=== PATIENT | female | born 1975 | race Caucasian/White ===

== ENCOUNTER → 2020-04-07 | Outpatient (CLI) | payer MEDICARE, OTHER ==
--- NOTE | 2020-04-07 23:07 | MR ---
EXAMINATION TYPE: MR brain/cspine wo/w DATE OF EXAM: 04/07/2020 COMPARISON: Prior MRI brain March 23, 2014. Prior C-spine x-ray December 31, 2013 HISTORY: MS, Darrius weakness, Dizziness, Numbness in darrius extremities TECHNIQUE: Multiplanar, multisequence images of the cervical spine, brain, and brainstem are all performed witho ut and with IV contrast, utilizing 10 mL intravenous Gadavist gadolinium contrast is administered int ravenously. Demyelinating disease protocol with additional Sagittal Flair sequence performed of the brain and brainstem and PD sagittal sequences of cervical spine performed. FINDINGS: T2 Lesions Present : Yes Approximate Number of Lesions: Approximately 15-20 Locations Identified : Scattered Size of Reference Lesion(s): 1. 5 x 4 x 4 mm on axial image 20 and sagittal image 28 posterior right frontal lesion new from prior . 2 5 x 5 x 4 mm on axial image 17 and sagittal image 13 left frontal deep white matter lesion larger a nd more prominent from prior Enhancing Lesion(s) Present: No T1 Hypointense Lesion(s) Present: Yes Change from Prior: Increase in number Diffusion weighted images demonstrate no evidence of a recent infarct or other diffusion abnormality. There is no worrisome extra-axial fluid collection. The ventricular system and cisternal spaces ar e normal in size and appearance. The brain volume is age appropriate. Midline structures demonstrate normal morphology. The craniocervical junction appears within normal limits. Post contrast images demonstrate no abnormal enhancement. The dural venous sinuses appear pa tent. Mild mucosal thickening right maxillary sinus otherwise paranasal sinuses are clear. IMPRESSION: Mild to moderate nonspecific white matter changes presumed on basis of patient's known mu ltiple sclerosis with interval progression since 2013 MRI. No enhancing lesions are evident currently . C-SPINE: FINDINGS: Images suboptimal as there is motion artifact degradation. Sagittal images of the cervical spine show the craniocervical junction to appear within normal limits. The cervical and upper thorac ic spinal cord is normal in caliber. No obvious suspicious T2 hyperintense lesion identified. Verteb ral alignment is anatomic. Mild disc space narrowing C6-C7 level. The vertebral body and intraverteb ral disk heights are otherwise normal. The bone marrow signal intensity is within normal limits. No suspicious postcontrast enhancement. Axial images show the C2-C3 level to appear within normal limits. Axial images at C3-C4 level show focal left paracentral disc protrusion effacing anterolateral thecal sac, patent bilateral neural foramina. Axial images at C4-C5 level show central disc protrusion effacing anterior thecal sac, patent bilater al neural foramina. Axial images at C5-C6 level show broad-based left paracentral disc protrusion effacing ventral thecal sac, patent bilateral neural foramina. Axial images at C6-C7 level showed broad based posterior disc protrusion effacing anterior thecal sac and causing mild to moderate bilateral neural foraminal narrowing. Axial images at C7-T1 level are within normal limits. IMPRESSION: Suboptimal study. No convincing MRI evidence for demyelinating disease involvement in the cervical spinal cord. Multilevel mild degenerative changes as detailed above.
== END | disposition home or self-care (01) ==
LOC: RADMRIMAIN 15:35
PROVIDERS: ATTEND Physician Assistant Medical
DX: R90.82 White matter disease, unspecified (principal); G43.909 Migraine, unspecified, not intractable, without status migrainosus; R25.1 Tremor, unspecified; M54.2 Cervicalgia; M47.892 Other spondylosis, cervical region
CPT/HCPCS: 70553; 72156; A9585

== ENCOUNTER → 2021-02-18 | Outpatient (CLI) | payer MEDICARE, OTHER ==
--- NOTE | 2021-02-19 01:37 | MR ---
EXAMINATION TYPE: MR cspine/tspine/lspine wo con DATE OF EXAM: 02/18/2021 COMPARISON: MR scan cervical spine 04/07/2020 HISTORY: Neck pain, pain into both arms to fingers, mid back pain, low back pain down both legs for 1 5 years. TECHNIQUE: Multiplanar, multisequence imaging of the cervical thoracic and lumbar spine without contr ast. FINDINGS: Cervical vertebra have normal alignment. There is some mild posterior disc bulging from C4 to C7. The re is developmentally large spinal canal and no significant spinal stenosis. Cervical spinal cord has normal signal pattern. There is no edema. Brainstem is intact. There is no sign of cervical paraspin al mass. The thoracic vertebra have fairly normal alignment. There is no thoracic spinal stenosis. Thoracic sp inal cord has fairly normal signal pattern. There is no edema. There is no thoracic compression fract ure. Posterior elements are intact. Facet joints appear intact. I see no focal bone destruction. The lumbar vertebra have fairly normal alignment. There is mild lumbar disc space narrowing and decre ased signal in the disks. There is minimal posterior disc bulging at L4-5. There is no evidence of sp inal stenosis. There is no lumbar compression fracture. There is no lumbar paraspinal mass. Sacroilia c joints are intact. IMPRESSION: Minor degenerative changes in the cervical and lumbar spine. No spinal stenosis. No significant abnor mality of the thoracic spine. Cervical spine not significantly different than old exam. There is slight increase facet arthropathy compared to old MR scan of 11/06/2018 in the lumbar spine a t L3-4 L4-5.
== END | disposition home or self-care (01) ==
LOC: RADMRIMAIN 20:17
PROVIDERS: ATTEND Orthopaedic Surgery
DX: M50.123 Cervical disc disorder at C6-C7 level with radiculopathy (principal); M51.16 Intervertebral disc disorders with radiculopathy, lumbar region
CPT/HCPCS: 72141; 72146; 72148

== ENCOUNTER → 2021-04-06 | Outpatient (CLI) | payer MEDICARE, OTHER ==
--- NOTE | 2021-04-07 04:23 | MR ---
EXAMINATION TYPE: MR clavicle LT wo/w con DATE OF EXAM: 04/06/2021 COMPARISON: None HISTORY: Palpable lump left clavicle. CONTRAST: Standard multiplanar, multisequence MRI departmental protocol utilizing 10 mL intravenous Gadavist ga dolinium contrast. Left clavicle has normal size and contour. There is no evidence of a fracture. There is no sign of lefty ne edema. AC joint is intact. There is mild spurring at the AC joint. There is no significant subacro mial impingement. AC joint space is fairly normal. The sternoclavicular joint is anatomic. There is n o evidence of joint effusion. There is no evidence of a soft tissue mass. There is a single 8 mm supr aclavicular lymph node. Muscle structures around the left clavicle appear intact. Coracoclavicular li gament appears intact. Contrast images show no pathologic enhancement. IMPRESSION: No evidence of a mass involving the left clavicle. There is minimal spurring at the AC joint. No evid ence of a soft tissue mass. No fracture.
== END | disposition home or self-care (01) ==
LOC: RADMRIMAIN 20:44
PROVIDERS: ATTEND Surgery Surgical Oncology
DX: M77.8 Other enthesopathies, not elsewhere classified (principal)
CPT/HCPCS: 71552; A9585

== ENCOUNTER → 2021-04-11 | Outpatient (CLI) | payer MEDICARE, OTHER ==
--- NOTE | 2021-04-12 06:08 | MR ---
EXAMINATION TYPE: MR pelvis wo/w con DATE OF EXAM: 04/11/2021 COMPARISON: None HISTORY: Left buttock lump. CONTRAST: Standard multiplanar, multisequence MRI departmental protocol utilizing mL intravenous gadolinium con trast. The IV contrast was 12 mL gadolinium. FINDINGS: There is rounded 2.3 cm focus of decreased signal in the subcutaneous fat over the posterior left but tock. This is in the area of concern and has low signal on all of the imaging sequences. The lumbar s pine x-ray exam of 01/31/2021 is reviewed and there is rounded calcification projected over the greater trochanter of the left femur that is probably this mass and related to focal fat necrosis. This celine ures 2 cm on the pelvis x-ray exam. Contrast images show no pathologic enhancement. There is no evidence of free fluid in the pelvis. I see no pelvic mass. Bladder distends smoothly. Sa cral spine appears intact. The proximal femurs and hip joints appear intact. There is no sign of avas cular necrosis. The acetabula appear normal. Sacroiliac joints are intact. IMPRESSION: Rounded nonenhancing low signal mass in the subcutaneous tissues consistent with fat necrosis or gran uloma and not changed in size compared to the calcium density evident on the pelvis x-ray of 01/31/2021 .
== END | disposition home or self-care (01) ==
LOC: RADMRIMAIN 07:03
PROVIDERS: ATTEND Surgery Surgical Oncology
DX: R22.42 Localized swelling, mass and lump, left lower limb (principal)
CPT/HCPCS: 72197; A9585

== ENCOUNTER → 2021-05-27 | Outpatient (CLI) | payer MEDICARE, OTHER ==
--- NOTE | 2021-05-27 14:43 | MM ---
Reason for exam: additional evaluation requested from prior study. Last mammogram was performed 5 years and 8 months ago. History: Patient is postmenopausal. Benign MG stereo VAD BX LT of the left breast, July 22, 2014. Took hormonal contraceptives for 14 years beginning at age 15. Took estrogen for 1 year. Physical Findings: Nurse did not find any significant physical abnormalities on exam. MG 3D Diag Mammo W/Cad JACI Bilateral CC and MLO view(s) were taken. XCCL view(s) were taken of the right breast. Prior study comparison: October 01, 2015, bilateral MG 3d screening mammo w/cad. January 29, 2015, left breast MG diagnostic mammo LT w CAD. There are scattered fibroglandular densities. Previous mammotome biopsy in the left breast. There is no discrete abnormality. These results were verbally communicated with the patient and result sheet given to the patient on 05/27/21. ASSESSMENT: Negative, BI-RAD 1 RECOMMENDATION: Routine screening mammogram of both breasts in 1 year.
== END | disposition home or self-care (01) ==
LOC: RADMAMWWP 13:22
PROVIDERS: ATTEND Internal Medicine
DX: N64.89 Other specified disorders of breast (principal); Z78.0 Asymptomatic menopausal state
CPT/HCPCS: 77066; G0279; 77062

== ENCOUNTER → 2024-04-18 | Outpatient (CLI) | payer MEDICARE, OTHER ==
--- NOTE | 2024-04-18 10:22 | CT ---
EXAMINATION TYPE: CT chest wo con CT DLP: 440 mGycm, Automated exposure control for dose reduction was used. DATE OF EXAM: 04/18/2024 10:04 AM COMPARISON: CT chest abdomen pelvis 11/15/2021 CLINICAL INDICATION:Female, 48 years old with history of R91.8 OTHER NONSPECIFIC ABNORMAL FINDING OF LUNG F; PHH, follow up to prior abn CT TECHNIQUE: Multiple axial images were obtained through the chest without IV contrast. Lack of IV or o ral contrast limits evaluation of solid and hollow organ viscera. Coronal and sagittal reformats revi ewed. FINDINGS: LUNGS/ PLEURA: No pleural effusion or pneumothorax. Right lateral upper lobe diffuse subpleural retic ular opacities. Stable 5.9 mm right lower lobe solid thyroid nodule (series 205, image 29). Stable 6. 6 mm intrafissural lymph node along the right minor fissure. Increased size of left midlung anterior 4.0 and 4.7 mm solid pulmonary nodules (series 205, image 20 and 27 respectively). AIRWAY: Patent and unremarkable.. HEART: Size within normal limits. No pericardial effusion. Small LAD coronary artery calcification. MEDIASTINUM: No gross evidence of adenopathy. VASCULATURE: No aortic aneurysm. MUSCULOSKELETAL: No acute osseous abnormalities SOFT TISSUES/LYMPH NODES: Unremarkable. LOWER NECK: No significant findings. UPPER ABDOMEN: Gastric lap band identified with additional surgical changes at the GE junction. Post cholecystectomy changes . IMPRESSION: Stable right lower lobe 5.9 mm pulmonary nodule with increased size of 2 left midlung pulmonary nodul es measuring less than 5 mm, previously 2 mm. Recommend follow-up CT chest in one year. [facility], , 04/18/2024 10:20 AM
== END | disposition home or self-care (01) ==
LOC: RADCTMAIN 09:36
PROVIDERS: ATTEND Internal Medicine
CPT/HCPCS: 71250

== ENCOUNTER → 2024-05-08 | Outpatient (CLI) | payer MEDICARE, OTHER ==
--- NOTE | 2024-05-11 16:48 | MM ---
Reason for Exam: Screening (asymptomatic). Last mammogram was performed 2 year(s) and 11 month(s) ago. Patient History: Menarche at age 11. First Full-Term at age 15. Right ovary removed at age 34. Hysterectomy at age 33. Postmenopausal. Patient used Estrogen for 1 year. Hormonal Contraceptives for 14 years from age 15 until age 28. 07/22/2014, Benign Core Biopsy on the left side. Risk Values: Jovita 5 year model risk: 0.8%. NCI Lifetime model risk: 7.8%. Prior Study Comparison: 01/29/2015 Left Diagnostic Mammogram, [facility]. 10/01/2015 Bilateral Screening Mammogram, [facility]. 05/27/2021 Bilateral Diagnostic Mammogram, [facility]. Tissue Density: There are scattered areas of fibroglandular density. Findings: Analyzed By CAD. The pattern is symmetrical. No significant interval change. Core markers within the left breast. No suspicious groups of microcalcifications, spiculated or lobular masses, architectural distortion or other secondary signs of malignancy are mammographically apparent. Overall Assessment: Benign, BI-RAD 2 Management: Screening Mammogram of both breasts in 1 year. A negative mammogram report should not preclude additional follow up of suspicious palpable abnormalities. Patient should continue monthly self breast exam. A clinical breast exam by your physician is recommended on an annual basis and results should be correlated with mammographic findings. Note on Jovita scores and lifetime risk: 1. A Jovita score greater than 3% is considered moderate risk. If this is the case, consider specialist referral to assess eligibility for a risk reducing agent. 2. If overall lifetime risk for the development of breast cancer is 20% or higher, the patient may qualify for future screening with alternating mammogram and breast MRI. [facility], , 05/11/2024 4:44 PM. Electronically signed and approved by: Fredy Frye D.O. Radiologis
== END | disposition home or self-care (01) ==
LOC: RADMAMWWP 10:14
PROVIDERS: ATTEND Internal Medicine
DX: Z12.31 Encounter for screening mammogram for malignant neoplasm of breast (principal); R92.323 Mammographic fibroglandular density, bilateral breasts; Z78.0 Asymptomatic menopausal state; Z90.722 Acquired absence of ovaries, bilateral
CPT/HCPCS: 77063; 77067